=== PATIENT | male | born 1940 | race Caucasian/White ===

== ENCOUNTER 2021-02-01 16:02 | Outpatient (CLI) | payer MEDICARE | END 2021-02-01 16:03 | disposition critical access hospital (66) | LOC: EMS 16:02 | DX: R55 Syncope and collapse (principal) | CPT/HCPCS: A0425; A0427 ==

== ENCOUNTER 2021-02-01 16:07 | Emergency (ER) | payer MEDICARE ==
[2021-02-01] MEDS ORDERED: SODIUM CHLORIDE 0.9% 1,000 ML IV STA (16:12)
--- NOTE | 2021-02-01 16:13 | ED Physician Documentation ---
History of Present Illness - Stated complaint Stated Complaint: SYNCOPE - History obtained from History obtained from: Patient - Additonal information Additional information: 80-year-old gentleman with history of hypertension but no heart problems per se went to dermatology clinic today where he had some lesions removed which he states was quite painful. He was feeling a little weak during the procedure and then set up after the procedure and had episode of syncope not associated with injury, chest pain, or trouble breathing. He states he has had vasovagal syncope a long time ago but it was at the age of 17 when he was getting shots in the [employer]. He feels better now. Review of Systems Constitutional: denies: Fever, Chills Nose: reports: Reviewed and negative Throat: reports: Reviewed and negative Cardiac: reports: Reviewed and negative PD PAST MEDICAL HISTORY - Allergies Allergies/Adverse Reactions: Allergies Allergy/AdvReac Type Severity Reaction Status Date / Time No Known Drug Allergies Allergy Verified 02/01/21 16:22 PD ED PE NORMAL - Vitals Vital signs reviewed: Yes - General General: Alert and oriented X 3, No acute distress - HEENT HEENT: PERRL, EOMI - Neck Neck: Supple, no meningeal sign, No bony TTP - Cardiac Cardiac: RRR (Modest bradycardia but regular with no murmur) - Respiratory Respiratory: No respiratory distress, Clear bilaterally - Abdomen Abdomen: Non tender - Extremities Extremities: No edema, No calf tenderness / cord - Neuro Neuro: Alert and oriented X 3, Normal speech Results - Vitals Vitals: Vital Signs - 24 hr 02/01/21 02/01/21 02/01/21 16:17 16:32 16:38 Temperature 36.5 C Heart Rate 44 L 40 L 42 L Respiratory 98 H 16 14 Rate Blood Pressure 116/53 L 115/64 115/64 O2 Saturation 98 97 98 02/01/21 16:55 Temperature Heart Rate 41 L Respiratory 15 Rate Blood Pressure 115/64 O2 Saturation 96 Oxygen O2 Source Room air - EKG (time done) 1610 Rate: Rate (enter#) (47) Rhythm: Sinus bradycardia [place]: Normal Intervals: Normal [place] QRS: Normal Ischemia: Other (Minimal anterior ST elevation without ischemic chest pain, reci procal changes.) Compare to prior EKG: Old EKG unavailable Computer interpretation: Agree with computer - Labs Labs: Laboratory Tests 02/01/21 02/01/21 16:20 16:20 WBC 10.6 RBC 4.00 L Hgb 13.1 L Hct 37.8 L MCV 94.5 H MCH 32.8 H MCHC 34.7 RDW 12.7 Plt Count 218 MPV 10.2 Neut # (Auto) 6.6 Lymph # (Auto) 2.8 [place] # (Auto) 0.9 Eos # (Auto) 0.3 Baso # (Auto) 0.1 Absolute Nucleated RBC 0.00 Nucleated RBC % 0.0 Sodium 137 Potassium 4.2 Chloride 104 Carbon Dioxide 22 Anion Gap 11.0 BUN 40 H Creatinine 1.3 H Estimated GFR (MDRD) 53 L Glucose 151 H Calcium 9.5 PD MEDICAL DECISION MAKING - ED course ED course: 80-year-old gentleman presents after a syncopal episode after a painful for procedure at the dermatology office. He is bradycardic here and states he has been bradycardic in the past. He has no chest pain, no trouble breathing. He was at times bradycardic down into the high 30s. He feels weak with it but there is no chest pain, no trouble breathing. He states that a while back, maybe 2 years ago he had his metoprolol halved because of a similar episode. Given the above he was offered an observation stay to let the metoprolol washout but he feels well and like to go home. Departure - Departure Disposition: 01 Home, Self Care Clinical Impression: Bradycardia Syncope Qualifiers: Syncope type: unspecified Qualified Code(s): R55 - Syncope and collapse Condition: Good Record reviewed to determine appropriate education?: Yes Instructions: ED Syncope Vasovagal Comments: I suspect the passing out episode today was due to a combination of what is called vasovagal syncope which can happen after a painful procedure and your heart rate already being a bit low from your metoprolol. I would stop the metoprolol pending follow-up with your physician. We also noted you to have mildly abnormal kidney function today with a BUN of 40, creatinine of 1.3, and GFR 53. This should be followed by your physician. Also your blood sugar was slightly high at 151, also to be followed by your physician. Follow-up with your physician within the week and return for new or worsening symptoms.
[2021-02-01 16:32] LABS: BASOPHILS # (AUTO) 0.1 10^3/uL (0.0-0.1); BASOPHILS % (AUTO) 0.8 %; EOSINOPHILS # (AUTO) 0.3 10^3/uL (0.0-0.7); EOSINOPHILS % (AUTO) 2.4 %; HCT - HEMATOCRIT 37.8 % (42.0-52.0); HGB - HEMOGLOBIN 13.1 g/dL (14.0-18.0); LYMPHOCYTES # (AUTO) 2.8 10^3/uL (1.5-3.5); LYMPHOCYTES % (AUTO) 25.8 %; MEAN CORPUSCULAR HEMOGLOBIN 32.8 pg (27.0-31.0); MEAN CORPUSCULAR HGB CONC 34.7 g/dL (32.0-36.0); MEAN CORPUSCULAR VOLUME 94.5 fL (80.0-94.0); MEAN PLATELET VOLUME 10.2 fL (7.4-11.4); MONOCYTES # (AUTO) 0.9 10^3/uL (0.0-1.0); MONOCYTES % (AUTO) 8.5 %; NEUTROPHILS # (AUTO) 6.6 10^3/uL (1.5-6.6); NEUTROPHILS % (AUTO) 62.1 %; PLT - PLATELET COUNT 218 10^3/uL (130-450); RED CELL DISTRIBUTION WIDTH 12.7 % (12.0-15.0); WHITE BLOOD COUNT 10.6 x10^3/uL (4.8-10.8)
[2021-02-01 16:41] LABS: CALCIUM 9.5 mg/dL (8.5-10.3); CREATININE 1.3 mg/dL (0.6-1.2); POTASSIUM 4.2 mmol/L (3.5-5.0)
[2021-02-01 17:41] VITALS: BP 176/66
== END 2021-02-01 17:43 | disposition home or self-care (01) ==
LOC: ED 16:07
DX: R55 Syncope and collapse (principal); R00.1 Bradycardia, unspecified
CPT/HCPCS: 36415; 80048; 85025; 93005; 99282; 99284